=== PATIENT | male | born 1995 | race Caucasian/White ===

== ENCOUNTER 2018-06-24 22:09 | Emergency (ER) | payer BC ==
[2018-06-25] MEDS ORDERED: SODIUM CHLORIDE 0.9% 1,000 ML IV ONE (00:09)
[2018-06-25 00:34] LABS: Glucose,Whole Blood 87 mg/dL (75-99)
[2018-06-25 00:40] LABS: Appearance,Urine Clear (Clear); Basophils # (A) 0.1 k/uL (0-0.2); Basophils % (A) 1 %; Bilirubin,Urine Negative (Negative); Blood,Urine Negative (Negative); Color,Urine Yellow; Eosinophils # (A) 0.1 k/uL (0-0.7); Eosinophils % (A) 1 %; Glucose,Urine (UA) Negative (Negative); HCT 45.5 % (39.0-53.0); HGB 16.1 gm/dL (13.0-17.5); Ketones,Urine Negative (Negative); Leukocyte Esterase,Urine Negative (Negative); Lymphocytes # (A) 3.2 k/uL (1.0-4.8); Lymphocytes % (A) 23 %; MCH 31.9 pg (25.0-35.0); MCHC 35.5 g/dL (31.0-37.0); Mean Platelet Volume 6.5; Monocytes # (A) 0.7 k/uL (0-1.0); Monocytes % (A) 5 %; Neutrophils # (A) 9.9 k/uL (1.3-7.7); Neutrophils % (A) 70 %; Nitrite,Urine Negative (Negative); PH, Urine 6.5 (5.0-8.0); Platelet Count 391 k/uL (150-450); Protein,Urine Negative (Negative); RBC 5.05 m/uL (4.30-5.90); RDW 12.2 % (11.5-15.5); Specific Gravity,Urine 1.011 (1.001-1.035); Urobilinogen,Urine <2.0 mg/dL (<2.0); WBC 14.2 k/uL (3.8-10.6)
[2018-06-25 01:02] LABS: ALT 61 U/L (21-72); AST 34 U/L (17-59); Albumin 4.7 g/dL (3.5-5.0); Alkaline Phosphatase 71 U/L (38-126); Amylase 41 U/L (30-110); Anion Gap 10 mmol/L; Blood Urea Nitrogen 10 mg/dL (9-20); Calcium 9.8 mg/dL (8.4-10.2); Carbon Dioxide 26 mmol/L (22-30); Chloride 104 mmol/L (98-107); Glucose 92 mg/dL (74-99); Lipase 74 U/L (23-300); Potassium 4.3 mmol/L (3.5-5.1); Sodium 140 mmol/L (137-145); Total Bilirubin 0.3 mg/dL (0.2-1.3); Total Protein 7.5 g/dL (6.3-8.2)
[2018-06-25 01:36] VITALS: BP 136/77; PULSE 95; RESP 16; TEMP 98.6
[2018-06-25] MEDS ORDERED: ONDANSETRON 4 MG ODT STARTER PACK 2 TAB BTL PO STA (02:00)
--- NOTE | 2018-06-25 02:00 | ED ---
General Adult HPI - General Chief complaint: Nausea/Vomiting/Diarrhea Stated complaint: shaky/vomiting Time Seen by Provider: 06/24/18 23:57 Source: patient Mode of arrival: ambulatory Limitations: no limitations - History of Present Illness Initial comments: 23-year-old male patient presents to the emergency department today for evaluation after becoming dizzy and having an episode of vomiting at work today. Patient states that he has been feeling unwell for the last couple of days and slept throughout the day yesterday. Patient states she's had decreased appetite. 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 Upon arrival patient reports he is still feeling slightly nauseated and dizzy. The patient denies any fevers or chills. States he is having normal bowel movements with no diarrhea. Patient denies any abdominal pain, chest pain, shortness of breath, weakness, numbness, or tingling. Patient denies any recent rash, back pain, hematuria, dysuria, urinary urgency, urinary frequency, headache, visual changes , or any other complaints. - Related Data Allergies Allergy/AdvReac Type Severity Reaction Status Date / Time No Known Allergies Allergy Verified 06/24/18 22:43 Review of Systems ROS Statement: Those systems with pertinent positive or pertinent negative responses have been documented in the HPI. ROS Other: All systems not noted in ROS Statement are negative. Past Medical History Past Medical History: No Reported History History of Any Multi-Drug Resistant Organisms: None Reported Past Surgical History: Ear Surgery Past Psychological History: Anxiety, Depression Smoking Status: Never smoker Past Alcohol Use History: None Reported Past Drug Use History: None Reported General Exam Limitations: no limitations General appearance: alert, in no apparent distress, other (This is a well- developed, well-nourished adult male patient in no acute distress. Vital signs upon presentation are temperature 98.7F, pulse 118, respirations 20, blood pressure 130/87, pulse ox 97% on room air.) Eye exam: Present: normal appearance, PERRL, EOMI. Absent: scleral icterus, conjunctival injection, periorbital swelling ENT exam: Present: normal exam, normal oropharynx, mucous membranes moist Respiratory exam: Present: normal lung sounds bilaterally. Absent: respiratory distress, wheezes, rales, rhonchi, stridor Cardiovascular Exam: Present: regular rate, normal rhythm, normal heart sounds. Absent: systolic murmur, diastolic murmur, rubs, gallop, clicks GI/Abdominal exam: Present: soft, normal bowel sounds. Absent: distended, tenderness, guarding, rebound, rigid Neurological exam: Present: alert, oriented X3, CN II-XII intact, other ( Strength in all 4 extremities is 5/5.) Psychiatric exam: Present: normal affect, normal mood Skin exam: Present: warm, dry, intact, normal color. Absent: rash Course Vital Signs 06/24/18 06/25/18 22:40 01:34 Temperature 98.7 F 98.6 F Pulse Rate 118 H 95 Respiratory 20 16 Rate Blood Pressure 130/87 136/77 O2 Sat by Pulse 97 Oximetry EKG Findings - EKG Comments: EKG Findings:: EKG obtained at 01 100 shows normal sinus rhythm with a ventricular rate of 87, ME interval 142, QRS duration 88, QT 356, QTC 428. No evidence of ST elevation or depression. Medical Decision Making - Medical Decision Making 23-year-old male patient presented to the emergency department today for evaluation after having an episode of vomiting and some dizziness. Physical examination is unremarkable. Patient is neurologically intact. Abdomen is soft and nontender. Labs reviewed and did reveal an elevated white blood cell count of 14.2, this could be reactive from vomiting. Patient is afebrile. EKG was normal sinus rhythm. I did discuss findings and results with the patient. He does report feeling better after receiving IV fluids here in the emergency department. He does feel comfortable being discharged home at this time to follow-up with his primary care physician. We did discuss return parameters in detail. Patient was discharged in stable condition. He verbalizes understanding and agrees with this plan. - Lab Data Result diagrams: 06/25/18 00:30 06/25/18 00:30 Lab Results 06/25/18 06/25/18 06/25/18 Range/Units 00:25 00:30 00:30 WBC 14.2 H (3.8-10.6) k/uL RBC 5.05 (4.30-5.90) m/uL Hgb 16.1 (13.0-17.5) gm/dL Hct 45.5 (39.0-53.0) % MCV 90.0 (80.0-100.0) fL MCH 31.9 (25.0-35.0) pg MCHC 35.5 (31.0-37.0) g/dL RDW 12.2 (11.5-15.5) % Plt Count 391 (150-450) k/uL Neutrophils % 70 % Lymphocytes % 23 % Monocytes % 5 % Eosinophils % 1 % Basophils % 1 % Neutrophils # 9.9 H (1.3-7.7) k/uL Lymphocytes # 3.2 (1.0-4.8) k/uL Monocytes # 0.7 (0-1.0) k/uL Eosinophils # 0.1 (0-0.7) k/uL Basophils # 0.1 (0-0.2) k/uL Sodium 140 (137-145) mmol/L Potassium 4.3 (3.5-5.1) mmol/L Chloride 104 (98-107) mmol/L Carbon Dioxide 26 (22-30) mmol/L Anion Gap 10 mmol/L BUN 10 (9-20) mg/dL Creatinine 0.90 (0.66-1.25) mg/dL Est GFR (CKD-EPI)AfAm >90 (>60 ml/min/1.73 sqM) Est GFR (CKD-EPI)NonAf >90 (>60 ml/min/1.73 sqM) Glucose 92 (74-99) mg/dL POC Glucose (mg/dL) 87 (75-99) mg/dL POC Glu Jumpbasting Collar Baster Rupal [place] Calcium 9.8 (8.4-10.2) mg/dL Total Bilirubin 0.3 (0.2-1.3) mg/dL AST 34 (17-59) U/L ALT 61 (21-72) U/L Alkaline Phosphatase 71 (38-126) U/L Total Protein 7.5 (6.3-8.2) g/dL Albumin 4.7 (3.5-5.0) g/dL Amylase 41 (30-110) U/L Lipase 74 (23-300) U/L Urine Color Urine Appearance (Clear) Urine pH (5.0-8.0) Ur Specific Raven (1.001-1.035) Urine Protein (Negative) Urine Glucose (UA) (Negative) Urine Ketones (Negative) Urine Blood (Negative) Urine Nitrite (Negative) Urine Bilirubin (Negative) Urine Urobilinogen (<2.0) mg/dL Ur Leukocyte Esterase (Negative) 06/25/18 Range/Units 00:30 WBC (3.8-10.6) k/uL RBC (4.30-5.90) m/uL Hgb (13.0-17.5) gm/dL Hct (39.0-53.0) % MCV (80.0-100.0) fL MCH (25.0-35.0) pg MCHC (31.0-37.0) g/dL RDW (11.5-15.5) % Plt Count (150-450) k/uL Neutrophils % % Lymphocytes % % Monocytes % % Eosinophils % % Basophils % % Neutrophils # (1.3-7.7) k/uL Lymphocytes # (1.0-4.8) k/uL Monocytes # (0-1.0) k/uL Eosinophils # (0-0.7) k/uL Basophils # (0-0.2) k/uL Sodium (137-145) mmol/L Potassium (3.5-5.1) mmol/L Chloride (98-107) mmol/L Carbon Dioxide (22-30) mmol/L Anion Gap mmol/L BUN (9-20) mg/dL Creatinine (0.66-1.25) mg/dL Est GFR (CKD-EPI)AfAm (>60 ml/min/1.73 sqM) Est GFR (CKD-EPI)NonAf (>60 ml/min/1.73 sqM) Glucose (74-99) mg/dL POC Glucose (mg/dL) (75-99) mg/dL POC Glu Jumpbasting Collar Baster ID Calcium (8.4-10.2) mg/dL Total Bilirubin (0.2-1.3) mg/dL AST (17-59) U/L ALT (21-72) U/L Alkaline Phosphatase (38-126) U/L Total Protein (6.3-8.2) g/dL Albumin (3.5-5.0) g/dL Amylase (30-110) U/L Lipase (23-300) U/L Urine Color Yellow Urine Appearance Clear (Clear) Urine pH 6.5 (5.0-8.0) Ur Specific Raven 1.011 (1.001-1.035) Urine Protein Negative (Negative) Urine Glucose (UA) Negative (Negative) Urine Ketones Negative (Negative) Urine Blood Negative (Negative) Urine Nitrite Negative (Negative) Urine Bilirubin Negative (Negative) Urine Urobilinogen <2.0 (<2.0) mg/dL Ur Leukocyte Esterase Negative (Negative) Disposition Clinical Impression: Gastroenteritis, Dizziness Disposition: HOME SELF-CARE Condition: Good Instructions: Acute Nausea and Vomiting (ED), Dizziness (ED) Additional Instructions: Increase fluids. Rest. Follow-up with your primary care physician for recheck in 1-2 days. Return here immediately for any new, worsening, or concerning symptoms. Is patient prescribed a controlled substance at d/c from ED?: No Referrals: None,Stated [Primary Care Provider] - 1-2 days Time of Disposition: 02:00
== END 2018-06-25 02:25 | disposition home or self-care (01) ==
LOC: EC 22:09
DX: K52.9 Noninfective gastroenteritis and colitis, unspecified (principal); R42 Dizziness and giddiness; Z53.8 Procedure and treatment not carried out for other reasons
CPT/HCPCS: 36415; 80053; 81003; 82150; 83690; 85025; 93005; 96360; 99284

== ENCOUNTER 2021-12-19 09:52 | Emergency (ER) | payer BC ==
[2021-12-19 10:01] VITALS: RESP 18
[2021-12-19] MEDS ORDERED: MORPHINE SULFATE 4 MG/ML SYRINGE IVP STA (10:19)
--- NOTE | 2021-12-19 10:22 | ED ---
General Adult HPI <Godfrey Padilla - Last Filed: 12/19/21 14:55> - General Source: EMS Mode of arrival: EMS Limitations: no limitations <Karthik Mir - Last Filed: 12/19/21 16:11> - General Chief complaint: Fall Stated complaint: IHS-left ankle injury Time Seen by Provider: 12/19/21 10:15 - History of Present Illness Initial comments: 26-year-old male presents to the emergency room for a chief complaint of left ankle pain. Patient states he was mopping the bathroom when he slipped and fell on the left ankle. States he cannot work bear weight on it. Patient did receive fentanyl on the way to the ER through EMS. Patient did not hit his head. Did not sustain any other injuries.Patient has no other complaints at this time including shortness of breath, chest pain, abdominal pain, nausea or vomiting, headache, or visual changes. (Karthik Mir) - Related Data Previous Rx's Medication Instructions Recorded HYDROcodone/APAP 5-325MG [[place] 1 tab PO Q6HR PRN 3 Days #12 tab 12/19/21 5-325] Allergies Allergy/AdvReac Type Severity Reaction Status Date / Time No Known Allergies Allergy Verified 12/19/21 10:39 Review of Systems ROS Other: All systems not noted in ROS Statement are negative. <Godfrey Padilla - Last Filed: 12/19/21 14:55> ROS Other: All systems not noted in ROS Statement are negative. <Karthik Mir - Last Filed: 12/19/21 16:11> ROS Statement: Those systems with pertinent positive or pertinent negative responses have been documented in the HPI. Past Medical History Past Medical History: No Reported History History of Any Multi-Drug Resistant Organisms: None Reported Past Surgical History: Ear Surgery Additional Past Surgical History / Comment(s): wisdom teeth 2011 Past Psychological History: Anxiety, Depression Smoking Status: Never smoker Past Alcohol Use History: None Reported Past Drug Use History: Marijuana <Karthik Mir - Last Filed: 12/19/21 16:11> General Exam Limitations: no limitations General appearance: alert, in no apparent distress Head exam: Present: atraumatic Eye exam: Present: normal appearance, PERRL, EOMI. Absent: scleral icterus, conjunctival injection ENT exam: Present: normal exam. Absent: mucous membranes moist Neck exam: Present: normal inspection, tenderness, full ROM Respiratory exam: Present: normal lung sounds bilaterally. Absent: respiratory distress, wheezes Cardiovascular Exam: Present: regular rate, normal rhythm, normal heart sounds GI/Abdominal exam: Present: soft, normal bowel sounds. Absent: distended, tenderness Extremities exam: Present: tenderness (Generalized tenderness left ankle), normal capillary refill (Capillary refill less than 2 seconds, DVT post 2+ left lower extremity), other (No tenting or lacerations) Neurological exam: Present: alert <Karthik Mir - Last Filed: 12/19/21 16:11> Course <Karthik Mir - Last Filed: 12/19/21 16:11> Vital Signs 12/19/21 12/19/21 12/19/21 09:53 11:12 14:28 Temperature 97.8 F Pulse Rate 101 H 91 101 H Respiratory 18 18 18 Rate Blood Pressure 131/81 120/65 135/88 O2 Sat by Pulse 98 98 100 Oximetry 12/19/21 12/19/21 12/19/21 14:31 14:36 14:41 Temperature Pulse Rate 118 H 112 H 112 H Respiratory 18 18 18 Rate Blood Pressure 138/98 147/97 141/93 O2 Sat by Pulse 93 L 100 99 Oximetry 12/19/21 14:56 Temperature Pulse Rate 94 Respiratory 18 Rate Blood Pressure 137/85 O2 Sat by Pulse 100 Oximetry - Reevaluation(s) Reevaluation #1: 12/19/21 12:12 Case was discussed with Puma from [facility] at 1210, will call back (Karthik Mir) Procedures - Procedural Sedation Procedural Sedation Start Time: 14:25 Procedural Sedation Stop Time: 14:46 Indications: fracture/dislocation reduction ASA Class: I Mallampati Airway Score: 2 Preparation: campus monitor applied, pulse oximeter IV Etomidate Dose (mgs): 12 Complications: none Patient Tolerated Procedure: well, no complications <Godfrey Padilla - Last Filed: 12/19/21 14:55> Medical Decision Making <Karthik Mir - Last Filed: 12/19/21 16:11> - Medical Decision Making Vitals are stable. HPI and physical exam as documented. X-ray shows an unstable trimalleolar ankle fracture with posterior tibiotalar joint subluxation. Case was discussed with cold from [facility], recommends reducing the ankle. Sedation and reduction performed by Dr. Padilla. Postreduction films were reviewed by [facility], feel this is satisfactory. Patient was splinted. He was given crutches and advised to remain nonweightbearing. Patient will be discharged home and was directed to return here for any worsening symptoms. He will follow up with orthopedics on Sunday. (Karthik Mir) Disposition <Godfrey Padilla - Last Filed: 12/19/21 14:55> Is patient prescribed a controlled substance at d/c from ED?: No Time of Disposition: 12:10 <Karthik Mir - Last Filed: 12/19/21 16:11> Clinical Impression: Trimalleolar fracture of ankle, closed Disposition: HOME SELF-CARE Condition: Good Instructions (If sedation given, give patient instructions): Ankle Fracture (ED) Additional Instructions: Please take pain medication as directed. Use crutches and remain nonweightbearing. Follow-up with orthopedics by calling [facility] or tomorrow morning for earliest appointment. REENA Bartholomew said Dr Li wants to see you Sunday. Return to the emergency room for any worsening symptoms. Prescriptions: HYDROcodone/APAP 5-325MG [[place] 5-325] 1 tab PO Q6HR PRN 3 Days #12 tab PRN Reason: Pain Referrals: Timmy Li DO [Doctor of Osteopathic Medicine] - 12/21/21
--- NOTE | 2021-12-19 10:52 | XR ---
EXAMINATION TYPE: XR ankle complete LT, 3 views DATE OF EXAM: 12/19/2021 Comparison: None Clinical History: 26-year-old male fall, pain Findings: There is an oblique fracture of the distal fibula offset posteriorly by approximately 2 mm. There is a transverse fracture of the medial malleolus distracted by 5 mm. There is a posterior malleolar ankl e fracture displaced superiorly by 6 mm. Slight posterior tibiotalar joint subluxation. Subtalar join t aligned. Impression: Unstable trimalleolar ankle fractures with posterior tibiotalar joint subluxation.
[2021-12-19] MEDS ORDERED: HYDROmorphone 0.5 MG/0.5 ML SYRINGE IVP STA ×3 (11:30→15:52)
[2021-12-19] MEDS ORDERED: ETOMIDATE 2 MG/ML 10 ML VIAL IVP STA (12:40)
--- NOTE | 2021-12-19 14:49 | XR ---
EXAMINATION TYPE: XR ankle complete LT DATE OF EXAM: 12/19/2021 COMPARISON: 12/19/2021 HISTORY: Postreduction fracture TECHNIQUE: 3 postreduction views of the left ankle are submitted. FINDINGS: Overlying cast material does obscure fine bony detail. Previously noted medial malleolar fr actures redemonstrated as is a displaced oblique distal fibular fracture. Disruption of the ankle mor tise persists. Overall alignment is unchanged. IMPRESSION: As above
[2021-12-19] MEDS ORDERED: ACET/COD 300 MG/30 MG STARTER PACK 6 TAB BTL PO STA (15:52)
[2021-12-19 20:42] VITALS: BP 125/81; PULSE 93; TEMP 98
== END 2021-12-19 16:10 | disposition home or self-care (01) ==
LOC: EC 09:52
DX: S82.852A Displaced trimalleolar fracture of left lower leg, initial encounter for closed fracture (principal); F12.90 Cannabis use, unspecified, uncomplicated; W01.0XXA Fall on same level from slipping, tripping and stumbling without subsequent striking against object, initial encounter
CPT/HCPCS: 73610; 27818; 99284; 96374; 96375; 96376 ×2; J2270; J1170